=== PATIENT | male | born 1960 | race Caucasian/White ===

== ENCOUNTER 2016-09-19 17:03 | Outpatient (CLI) | payer OTHER, BC | END 2016-09-19 17:04 | disposition home or self-care (01) | DX: K42.9 Umbilical hernia without obstruction or gangrene (principal) ==

== ENCOUNTER 2016-10-05 08:29 | Day surgery (SDC) | payer OTHER, BC ==
[2016-10-05] MEDS ORDERED: ceFAZolin 2 GM/50 ML 50 ML IV ONE (08:37)
[2016-10-05] MEDS ORDERED: LACTATED RINGERS 1,000 ML IV ONE ×3 (09:13→14:08)
[2016-10-05] MEDS ORDERED: BUPIVACAINE 0.5% PF 30 ML VIAL INFIL ONE ×2 (11:52)
[2016-10-05] MEDS ORDERED: LIDOCAINE 1%-EPI 1:100000 20 ML MDV SUBQ ONE ×2 (11:52)
[2016-10-05] MEDS ORDERED: LIDOCAINE 2%-EPI 1:100000 20 ML MDV SUBQ ONE (11:53)
[2016-10-05] MEDS ORDERED: fentaNYL 250 MCG/5 ML VIAL IVP ONE (13:00)
[2016-10-05] MEDS ORDERED: ONDANSETRON 4 MG/2 ML VIAL IVP ONE (13:00)
[2016-10-05] MEDS ORDERED: KETOROLAC 30 MG/ML VIAL IVP ONE (13:00)
[2016-10-05] MEDS ORDERED: MIDAZOLAM 2 MG/2 ML VIAL IVP ONE (13:00)
[2016-10-05] MEDS ORDERED: PROPOFOL 200 MG/20 ML VIAL IVP ONE (13:00)
[2016-10-05] MEDS ORDERED: DEXAMETHASONE 4 MG/ML VIAL IVP ONE (13:00)
[2016-10-05] MEDS ORDERED: GLYCOPYRROLATE 1 MG/5 ML VIAL IVP ONE (13:00)
[2016-10-05] MEDS ORDERED: LIDOCAINE-MPF 2% 5 ML VIAL IM ONE (13:00)
[2016-10-05] MEDS ORDERED: ACETAMINOPHEN 1,000 MG/100 ML VIAL IV ONE (13:00)
[2016-10-05] MEDS ORDERED: ROCURONIUM 50 MG/5 ML VIAL IVP ONE (13:00)
[2016-10-05] MEDS ORDERED: NEOSTIGMINE 1 MG/1 ML 10 ML MDV IVP ONE (13:00)
[2016-10-05] MEDS ORDERED: SUCCINYLCHOLINE 200 MG/10 ML VIAL IVP ONE (13:00)
[2016-10-05] MEDS ORDERED: HYDROmorphone 1 MG/ML SYRINGE ONE (13:44)
[2016-10-05] MEDS ORDERED: oxyCOD/ACETAMIN 5 MG/325 MG TABLET PO ONE (14:37)
== END 2016-10-05 08:30 | disposition home or self-care (01) ==
PROC: 0WUF0JZ Supplement Abdominal Wall with Synthetic Substitute, Open Approach (ICD-10-PCS; principal; 2016-10-05 09:45)
DX: K42.9 Umbilical hernia without obstruction or gangrene (principal); G47.33 Obstructive sleep apnea (adult) (pediatric); Z82.3 Family history of stroke; Z83.49 Family history of other endocrine, nutritional and metabolic diseases; Z87.891 Personal history of nicotine dependence; E66.9 Obesity, unspecified; Z68.41 Body mass index [BMI] 40.0-44.9, adult
CPT/HCPCS: 49585; A9270; J0131; J0690; J1170; J3010; J7120

== ENCOUNTER 2016-10-17 15:39 | Outpatient (CLI) | payer OTHER, BC | END 2016-10-17 15:40 | disposition home or self-care (01) | DX: R30.0 Dysuria (principal) ==

== ENCOUNTER 2016-10-18 09:27 | Outpatient (CLI) | payer OTHER, BC | END 2016-10-18 09:28 | disposition home or self-care (01) | DX: K57.32 Diverticulitis of large intestine without perforation or abscess without bleeding (principal) ==

== ENCOUNTER 2016-12-24 10:20 | Outpatient (CLI) | payer BC, OTHER | END 2016-12-24 10:21 | disposition home or self-care (01) | LOC: SC 10:20 | PROVIDERS: ATTEND Nurse Practitioner Family | DX: G47.33 Obstructive sleep apnea (adult) (pediatric) (principal) | CPT/HCPCS: 99212; 99214 ==

== ENCOUNTER 2017-11-20 09:05 | Outpatient (CLI) | payer OTHER, BC ==
--- NOTE | 2017-11-20 10:45 | Ultrasound Report ---
LIMITED ABDOMINAL ULTRASOUND: 11/20/2017 CLINICAL INDICATION: Pain, question recurrent periumbilical hernia. TECHNIQUE: Real-time scanning was performed with novelties sales representative static images obtained. FINDINGS: Ultrasound of the periumbilical abdominal wall was performed. There was no evidence of a recurrent hernia. Unremarkable subcutaneous fat is seen. IMPRESSION: NO EVIDENCE OF A RECURRENT PERIUMBILICAL HERNIA. TD: 11/20/2017 10:19
== END 2017-11-20 09:06 | disposition home or self-care (01) ==
LOC: DI 09:05
PROVIDERS: ATTEND Family Medicine
DX: S39.011A Strain of muscle, fascia and tendon of abdomen, initial encounter (principal); R10.9 Unspecified abdominal pain; K42.9 Umbilical hernia without obstruction or gangrene
CPT/HCPCS: 76705

== ENCOUNTER 2018-01-21 09:42 | Outpatient (CLI) | payer BC, OTHER | END 2018-01-21 09:43 | disposition home or self-care (01) | LOC: SC 09:42 | PROVIDERS: ATTEND Nurse Practitioner Family | DX: G47.33 Obstructive sleep apnea (adult) (pediatric) (principal) | CPT/HCPCS: 99212; 99214 ==

== ENCOUNTER 2018-06-26 09:52 | Outpatient (CLI) | payer BC, OTHER ==
[2018-06-26 13:29] LABS: BASOPHILS % (AUTO) 0.3 %; EOSINOPHILS # (AUTO) 0.1 10^3/uL (0.0-0.7); EOSINOPHILS % (AUTO) 1.3 %; HGB - HEMOGLOBIN 15.4 g/dL (14.0-18.0); LYMPHOCYTES # (AUTO) 1.8 10^3/uL (1.5-3.5); LYMPHOCYTES % (AUTO) 29.1 %; MEAN CORPUSCULAR HEMOGLOBIN 31.4 pg (27.0-31.0); MEAN CORPUSCULAR HGB CONC 35.6 g/dL (32.0-36.0); MEAN CORPUSCULAR VOLUME 88.2 fL (80.0-94.0); MEAN PLATELET VOLUME 9.4 fL (7.4-11.4); MONOCYTES # (AUTO) 0.4 10^3/uL (0.0-1.0); MONOCYTES % (AUTO) 6.4 %; NEUTROPHILS # (AUTO) 3.9 10^3/uL (1.5-6.6); NEUTROPHILS % (AUTO) 62.9 %; PLT - PLATELET COUNT 121 10^3/uL (130-450); RED BLOOD COUNT 4.91 10^6/uL (4.70-6.10); RED CELL DISTRIBUTION WIDTH 13.5 % (12.0-15.0); WHITE BLOOD COUNT 6.3 x10^3/uL (4.8-10.8)
[2018-06-26 14:12] LABS: ALBUMIN/GLOBULIN RATIO 1.3 (1.0-2.2); BILIRUBIN,TOTAL 0.7 mg/dL (0.2-1.0); CALCIUM 8.8 mg/dL (8.5-10.3); CREATININE 0.8 mg/dL (0.6-1.2); TOTAL PROTEIN 7.1 g/dL (6.7-8.2)
== END 2018-06-26 23:59 | disposition home or self-care (01) ==
LOC: LAB.WCP 09:52
PROVIDERS: ATTEND Family Medicine
DX: R10.33 Periumbilical pain (principal)
CPT/HCPCS: 36415; 80053; 82150; 83690; 85025

== ENCOUNTER 2019-01-07 08:43 | Outpatient (CLI) | payer BC, OTHER | END 2019-01-07 08:44 | disposition home or self-care (01) | LOC: SC 08:43 | PROVIDERS: ATTEND Nurse Practitioner Family | DX: G47.33 Obstructive sleep apnea (adult) (pediatric) (principal) | CPT/HCPCS: 99212; 99214 ==

== ENCOUNTER 2019-08-06 10:37 | Outpatient (CLI) | payer OTHER, BC ==
--- NOTE | 2019-08-06 16:30 | XRAY Report ---
Reason: LEFT KNEE SPRAIN Procedure Date: 08/06/2019 Accession Number: [id number] / [id number] Procedure: WCP - Knee 3 View LT CPT Code: Final Report FULL RESULT: EXAM: LEFT KNEE RADIOGRAPHY EXAM DATE: 08/06/2019 10:37 AM. CLINICAL HISTORY: LEFT KNEE SPRAIN. COMPARISON: None. TECHNIQUE: 3 views. FINDINGS: Bones: Superior patellar enthesophyte. No fractures or bone lesions. Joints: Normal. No effusion. No subluxations. Soft Tissues: Normal. No soft tissue swelling. IMPRESSION: No fracture or dislocation. RADIA
== END 2019-08-06 10:38 | disposition home or self-care (01) ==
LOC: DI.WCP 10:37
PROVIDERS: ATTEND Family Medicine
DX: S83.92XA Sprain of unspecified site of left knee, initial encounter (principal)

== ENCOUNTER 2019-08-26 09:58 | Outpatient (CLI) | payer OTHER, BC ==
--- NOTE | 2019-08-26 12:35 | MRI Report ---
Reason: SPONTANEOUS RUPTURE OF QUADRICEPS TENDON, LT Procedure Date: 08/26/2019 Accession Number: [id number] / [id number] Procedure: MRI - Knee LT W/O CPT Code: Final Report FULL RESULT: EXAM: LEFT KNEE MRI WITHOUT CONTRAST EXAM DATE: 08/26/2019 11:10 AM. CLINICAL HISTORY: Medial left knee pain after twisting and fall injury. SPONTANEOUS RUPTURE OF QUADRICEPS TENDON, LT. COMPARISON: KNEE 3 VIEW LT 08/06/2019 10:37 AM. TECHNIQUE: Multiplanar, multisequence T1-weighted and fluid-sensitive sequences of the knee without contrast. Other: None. FINDINGS: Bones and articular cartilage: Focal articular cartilage fissure and minimal subchondral marrow edema at the posterior lateral aspect of the medial femoral condyle. Grade II chondromalacia and mild subchondral marrow edema at the medial tibial plateau. Multiple, mostly partial-thickness articular cartilage fissures at the patella. A bipartite patellar variant is present. No patellar subluxation. Medial Meniscus: Radial tear at the lateral aspect of the posterior horn. Lateral Meniscus: The lateral meniscus is intact. Cruciate Ligaments: The anterior and posterior cruciate ligaments are intact. Collateral Ligaments: The medial collateral and lateral collateral ligamentous structures are intact. Tendons: The quadriceps, patellar, semimembranosus, and popliteus tendons are unremarkable. Musculature: No edema or fatty atrophy. Other: Small joint effusion. No popliteal cyst. No loose bodies. The medial and lateral retinacula are intact. Mild amount of edema at the pes anserine bursa. IMPRESSION: 1. Tricompartmental chondromalacia. 2. Radial tear at the lateral aspect of the posterior horn medial meniscus. 3. Small joint effusion. 4. Mild amount of edema at the pes anserine bursa. RADIA
== END 2019-08-26 09:59 | disposition home or self-care (01) ==
LOC: DI 09:58
PROVIDERS: ATTEND Family Medicine
DX: M94.262 Chondromalacia, left knee (principal); S83.242A Other tear of medial meniscus, current injury, left knee, initial encounter; M25.462 Effusion, left knee; R60.0 Localized edema

== ENCOUNTER 2020-01-28 10:40 | Outpatient (CLI) | payer BC, OTHER ==
[2020-01-28 11:54] VITALS: BP 138/98
--- NOTE | 2020-01-28 11:54 | SLEEP CARE CONSULTATION ---
Information from patient questionnaire entered by Keturah Copeland. I have reviewed and concur with the information entered by Keturah Copeland. This document represents the service I personally performed and the decisions made by me, Madison Sanchez, RN, MSN, [employer]. History of Present Illness Service Date and Time: 01/28/2020 1040 Previous diagnosis: Moderate, Obstructive Sleep Apnea-Hypopnea Syndrome AHI: 18.2 Reason for follow up: annual Equipment type: CPAP Equipment obtained from: [facility] (having getting supplies despite repeated attempts / would like to transfer) Mask style: Full face Backup mask available: Yes (old mask ) Last cushion change: none since new mask 4 months ago Prior sleep studies: Yes Year and Where: 2015 [facility] Type of Sleep Study: Polysomnography HPI additional information: Current bedime 1am and wake time 6-7 am average without use of an alarm. He will not put CPAP on occasionally after using the bathroom CPAP Compliance Data - Data Reviewed with Patient Average duration of nightly device use: 5h 42m Compliance rate %: 90.6 Current pressure setting (cmH2O): 7 Humidity settin Average residual AHI: 2.7 Average large leak: 3m 41s Subjective Missed days of use due to: reports: travel (forgot CPAP despite at door ) Patient concerns: reports: dry mouth, nose, throat (dry throat ). denies: aerophagia, mask discomfort, air blowing in eyes, mask leak noise, condensation in mask/hose, nasal congestion, epistaxis, other Observed to snore while using device: No Current pressure setting perceived as: comfortable On therapy, patient: reports: sleeping better, awakening more refreshed, being more awake and alert during the day, more rested overall. denies: drowsiness while driving Initial [place] Sleepiness Scale score: 14 Current [place] Sleepiness Scale score: 1 Allergies and Home Medications Known drug allergies: No Home medication list reviewed: No (added Linzess for constipation ) Review of Systems Review of systems same as previous: Yes Physical Exam Blood Pressure: 138/98 (PCP normal 3 days ago ? ) Cuff size: long Heart Rate: 60 O2 Saturation: 98 Height: 5 ft 10 in Weight: 288 lb 12.8 oz Body Mass Index: 41.4 BMI Classification: Morbidly Obese Impression and Plan 1. Obstructive Sleep Apnea-Hypopnea Syndrome, moderate , with good treatment compliance and good apnea control. On CPAP therapy, the patient has better sleep quality and is more rested overall. For patient supply concerns. Patient was notified that another DME can be used. I will have my enrollment management coordinator inform of DME options. A DWO prescription will then be made. Patient advised to contact this office if further supply problems. Insufficient sleep due to work schedule, 1.[address], and household obligations. He is encouraged to obtain more sleep due to health risks associated with less than 5- 6 horus of sleep. Most people require 7-8 hours of sleep for optimal mental and physical function. His compliance sleep patterns were reviewed and I showed him how his sleep time can be as low as 4 hours and as much as 8 hours. He is encouraged to use CPAP also with all sleep and put back on after using the bathroom as there is increased risk of apnea in REM sleep in out later sleep. Mask leaks can be reduced by washing mask daily and changing mask cushions more frequently to improve mask seal and comfort. This will be easier when he can get supplies on time. Increase setting on humidifier if continued dryness. He asked about cleaning devices for CPAP. FDA warning given about association with health risks. He can check online for warning. He is advised instead to do usual cleaning as advised by bench mover and reviewed. In addition, he was advised to dump water daily to allow to dry out instead of keeping in several days till used with rationale discussed. Currently patients BMI is 41.4 obesity class . Obesity increases the risk of apnea, CPAP pressure requirements and overall health risks especially cardiovascular and diabetes. Thus patient is advised to lose weight. A diet consultation can be helpful in achieving optimal weight loss goals. The BMI chart was reviewed. The patient would like to start by losing 10 pounds. He has lost 40 pounds in the past but regained after stopped nutrisystem diet plan. Patient encouraged to discuss their weight loss goals with their PCP and consider a referral to a steam drier tender. The patient's CPAP pressure range should accommodate some weight loss.was changed to autoCPAP to accommodate for future weight loss. Symptoms to report for additional pressure adjustment discussed. Patient's apnea severity and rationale for treatment to reduce apnea, improve sleep quality and reduce cardiovascular and cerebrovascular events was reviewed. I 2. Elevated blood pressure. today it was 130 / 98. He states he was stressed about returning to work today after 5 days off. His blood pressure was normal 3 days ago in PCP office but does not know reading. He is advised of health risks associated with uncontrolled BP. He has a blood pressure monitor at home, his spouse uses. He is to retake when home and rested and contact PCP if remains elevated for guidelines with rationale explained. * Transfer to new DME * Continue auto CPAP pressure at 7 cmH2O * Obtain more sleep. * Implement cleaning of equipment more frequently. * Notify me if snoring with mask or feeling that the pressure is too much or too little * Attempt to lose weight * Consider diet consultation. * Follow up with PCP if blood pressure remains elevated * Call this office if any problems using CPAP * Return for follow up in 1year , or sooner if concerns arise Visit Type: In Office Provider Statement: I spent 100% of the Face to Face Visit with the patient with greater than 50% spent counseling the patient and coordination of care.
== END 2020-01-28 10:41 | disposition home or self-care (01) ==
LOC: SC 10:40
PROVIDERS: ATTEND Nurse Practitioner Family
DX: G47.33 Obstructive sleep apnea (adult) (pediatric) (principal); E66.01 Morbid (severe) obesity due to excess calories; Z68.41 Body mass index [BMI] 40.0-44.9, adult; R03.0 Elevated blood-pressure reading, without diagnosis of hypertension
CPT/HCPCS: 99212; 99214

== ENCOUNTER 2021-01-25 10:24 | Outpatient (CLI) | payer BC, OTHER ==
--- NOTE | 2021-01-25 11:29 | SLEEP CARE CONSULTATION ---
Information from patient questionnaire entered by Ching Gilmore. I have reviewed and concur with the information entered by Ching Gilmore. This document represents the service I personally performed and the decisions made by , Eleni Stoddard ARNP. History of Present Illness Service Date and Time: 01/25/2021 1024 Previous diagnosis: Moderate, Obstructive Sleep Apnea-Hypopnea Syndrome AHI: 18.2 (in 2015) Reason for follow up: annual (last seen 01/2020) Equipment type: CPAP Equipment obtained from: [facility] (getting supplies as needed) Mask style: Full face Backup mask available: Yes (old mask) Last cushion change: 1 month Prior sleep studies: Yes Year and Where: 2016 - [facility] HPI additional information: SHEILA HOWARD was diagnosed to have moderate, AHI 18.2, obstructive sleep apnea-hypopnea syndrome and returned today for CPAP therapy annual follow-up. CPAP Compliance Data - Data Reviewed with Patient Average duration of nightly device use: 6 hr 7 min Compliance rate %: 95 (180 days) Current pressure setting (cmH2O): 7 Humidity settin Heated hose settin Average residual AHI: 2.1 Average large leak: 1 min 39 sec Subjective Patient concerns: denies: aerophagia, mask discomfort, air blowing in eyes, mask leak noise, condensation in mask/hose, nasal congestion, dry mouth, nose, throat, epistaxis, other Observed to snore while using device: No Current pressure setting perceived as: comfortable On therapy, patient: reports: sleeping better, awakening more refreshed, being more awake and alert during the day, more rested overall. denies: drowsiness while driving Initial [place] Sleepiness Scale score: 13 (in 2016) Current [place] Sleepiness Scale score: 2 Allergies and Home Medications Home medication list reviewed: Yes (no changes) Review of Systems Review of systems same as previous: Yes (no changes) Physical Exam Heart Rate: 66 O2 Saturation: 97 Height: 5 ft 10 in Weight: 292 lb Body Mass Index: 41.8 BMI Classification: Morbidly Obese Impression and Plan 1. Obstructive Sleep Apnea-Hypopnea Syndrome, moderate, with good treatment compliance and good apnea control. On CPAP therapy, the patient has better sleep quality and is more rested overall. Patient Dreamstation is on the recall and he has registered his device. I advised him to use an inline filter to reduce any particles from machine. His machine was last updated in 2016, he is eligible for a new device. The patients CPAP is over 5 years old and of reasonable use. Thus, the CPAP will be updated. A DWO prescription will be made. Compliance guidelines for new device and follow up discussed. Patient voiced understanding. Patient's apnea severity and rationale for treatment to reduce apnea, improve sleep quality and reduce cardiovascular and cerebrovascular events was reviewed. Patient encouraged to try to lose weight. He states his schedule prevents him at this time. * Continue auto CPAP pressure at 7 cmH2O * Update machine and supplies * Notify me if snoring with mask or feeling that the pressure is too much or too little * Attempt to lose weight * Call this office if any problems using CPAP * Return for follow up one month after getting new device, or sooner if concerns arise Counseling Topics: Spare mask, Weight loss health impact Visit Type: In Office Time Spent with Patient (minutes): 20 Provider Statement: I spent 100% of the Face to Face Visit with the patient with greater than 50% spent counseling the patient and coordination of care.
== END 2021-01-25 10:25 | disposition home or self-care (01) ==
LOC: SC 10:24
PROVIDERS: ATTEND Nurse Practitioner Family
DX: G47.33 Obstructive sleep apnea (adult) (pediatric) (principal); E66.01 Morbid (severe) obesity due to excess calories; Z68.41 Body mass index [BMI] 40.0-44.9, adult
CPT/HCPCS: 99212; 99213

== ENCOUNTER 2021-05-21 20:50 | Emergency (ER) | payer BC, OTHER ==
--- NOTE | 2021-05-21 21:12 | ED Physician Documentation ---
History of Present Illness - Stated complaint Stated Complaint: FELL DOWN STAIRS - Chief complaint Chief Complaint: Trauma Ch/Bk - History obtained from History obtained from: Patient - Additonal information Additional information: He was walking down his steps outdoors around 1:30 PM today and slipped and fell backwards hitting his left side against the brick steps with severe pain in that area although declines pain medication having taken Tylenol and ibuprofen prior to arrival. No other injuries. Review of Systems Constitutional: denies: Fever, Chills Cardiac: reports: Reviewed and negative Respiratory: reports: Reviewed and negative PD PAST MEDICAL HISTORY - Past Medical History Cardiovascular: Murmur Respiratory: Sleep apnea, CPAP use Endocrine/Autoimmune: None GI: Chronic constipation : None HEENT: None Psych: None Musculoskeletal: Gout, Other Derm: None - Past Surgical History Past Surgical History: No General: Colonoscopy Ortho: Other - Present Medications Home Medications: Ambulatory Orders Medication Instructions Recorded Confirmed Ibuprofen [Motrin Ib] 800 mg PO Q8HR PRN 02/08/15 05/21/21 allopurinoL [Allopurinol] 100 mg PO DAILY 02/08/15 05/21/21 Multivitamin [Multiple Vitamins] 1 tab PO DAILY 10/05/16 05/21/21 HYDROcod/ACETAM 5/325 [[place] 5/325] 1 - 2 tab PO Q6H PRN #15 tablet 05/21/21 Meloxicam [Mobic] 7.5 mg PO BID PRN 05/21/21 05/21/21 - Allergies Allergies/Adverse Reactions: Allergies Allergy/AdvReac Type Severity Reaction Status Date / Time No Known Drug Allergies Allergy Verified 02/08/15 02:10 - Social History Does the pt smoke?: No Smoking Status: Never smoker Does the pt drink ETOH?: Yes Does the pt have substance abuse?: No - Immunizations Immunizations are current?: Yes - POLST Patient has POLST: No PD ED PE NORMAL - Vitals Vital signs reviewed: Yes - General General: Alert and oriented X 3, No acute distress - HEENT HEENT: PERRL, EOMI - Neck Neck: Supple, no meningeal sign, No bony TTP - Cardiac Cardiac: RRR, No murmur - Respiratory Respiratory: No respiratory distress, Clear bilaterally - Abdomen Abdomen: Soft, Non tender - Back Back: Other (Exquisitely tender in the left lower lateral posterior ribs. Also some flank tenderness on the left. No midline spinal tenderness. No bruising or ecchymosis.) - Derm Derm: Normal color, Warm and dry - Neuro Neuro: Alert and oriented X 3, Normal speech Results - Vitals Vitals: Vital Signs - 24 hr 05/21/21 05/21/21 20:52 23:20 Temperature 36.5 C 36.9 C Heart Rate 65 59 L Respiratory 18 16 Rate Blood Pressure 138/90 H 128/91 H O2 Saturation 96 98 Oxygen O2 Source Room air - Rads (name of study) CT Chest/A/P Radiology: EMP read contemporaneously PD MEDICAL DECISION MAKING - ED course ED course: 60 yo male p fall with back injury. Ct showing rib frx x 1 but also retroperitoneal LAD and d/w patient and need for f/u for same and pt verablizes understanding of need for close f/u for incidental but important finding. Departure - Departure Disposition: 01 Home, Self Care Clinical Impression: Contusion of chest wall, Back strain, LAD (lymphadenopathy), retroperitoneal Fracture of rib Qualifiers: Encounter type: initial encounter Rib fracture type: single rib Fracture type: closed Laterality: left Qualified Code(s): S22.32XA - Fracture of one rib, left side, initial encounter for closed fracture Condition: Good Record reviewed to determine appropriate education?: Yes Instructions: ED Fx Rib Prescriptions: HYDROcod/ACETAM 5/325 [[place] 5/325] 1 - 2 tab PO Q6H PRN #15 tablet PRN Reason: Pain Comments: Prescrtiption sent electronically to [facility] in [place]. Call your doctor to arrange a follow-up appointment, make the next available appointment. In the interim, return anytime if worse or if new symptoms develop. You have a single rib fracture identified by the radiologist. He also noted some swollen lymph nodes in your abdomen. This is unrelated to the fall, but will require followup and further workup with your primary physician. I am prescribing a short course of narcotic pain medication for you. These are potentially dangerous and addictive medications that should be used carefully. These medications may constipate you. Take an wfnd-luu-krdqkwi stool softener (docusate) twice daily with plenty of water while taking these medications. If you go 24 hours without a bowel movement, take ghue-wvj-ptrhazk miralax, per package instructions. Do not drink or drive while taking these medications. If you received narcotic or sedating medications while in the emergency department, do not drive for 24 hours. Store this medication in a safe, secure place and out of reach of children. It is a violation of federal law to give or sell this medication to another person or to use in a manner other than prescribed. The ED will not refill narcotic prescriptions, including prescriptions lost or stolen. To dispose of unwanted medications: 1. [facility] at [address] in [place] has a medication drop box. They accept prescription medications (in pill form) Saturday through Saturday 9:00 a.m. to 5:00 p.m. 2. [facility] accepts prescription medications (in pill form only) for disposal year round. Call for more information. 3. Contact the [facility] for the next [facility] sponsored prescription drug collection event. , [phone], or [phone]; Note that many narcotic pain relievers also contain Tylenol/acetaminophen. Please ensure that your total dose of acetaminophen from all sources does not exceed 3 g (3000 mg) per day. Forms: Activity restrictions Discharge Date/Time: 05/21/21 23:21
[2021-05-21] MEDS ORDERED: HYDROcod/ACET 5/325 Prepack 4 PO STA (22:22)
--- NOTE | 2021-05-21 22:30 | CT Report ---
PROCEDURE: CHEST WO INDICATIONS: back injury TECHNIQUE: Noncontrast 1mm axial images were acquired from the pulmonary apices to the posterior costophrenic an gles. Axial 5 mm soft tissue kernel reconstructions were performed as well as 8 mm axial MIP and cor onal and sagittal 5 mm reformations. For radiation dose reduction, the following was used: automate d exposure control, adjustment of mA and/or kV according to patient size. COMPARISON: None. FINDINGS: Image quality: Excellent. Lungs and pleura: No acute air space opacities. No suspicious pulmonary nodules. No pleural effusion s or pneumothorax. Central and peripheral airways are patent and normal in caliber. Mediastinum: Heart size is normal. Atherosclerotic calcifications of the coronary arteries and thor acic aorta are noted. No pericardial effusion. No mediastinal adenopathy by size criteria. Thoracic aorta and central pulmonary arteries are normal in size. Esophagus is normal in caliber. No hiatal hernia. Bones and chest wall: No suspicious bony lesions. No acute vertebral body compression fractures. N o axillary or supraclavicular adenopathy by size criteria. The thyroid is normal in size and there a re no incidental findings. Abdomen: Visualized upper abdominal solid organs and bowel loops appear normal in the absence of con trast. IMPRESSION: Chest without acute cardiopulmonary abnormalities. Acute, nondisplaced fracture of the posterior left 11th rib. No acute compression fractures of the im aged spine. Atherosclerosis. CLINICAL RECOMMENDATION STATEMENTS: In patients <35 years with an ITN detected on CT, MRI, or extrathyroidal ultrasound, the Committee re commends further evaluation with dedicated thyroid ultrasound if the nodule is "e1 cm and has no susp icious imaging features, and if the patient has normal life expectancy. In patients "e35 years with an ITN detected on CT, MRI, or extrathyroidal ultrasound, the Committee r ecommends further evaluation with dedicated thyroid ultrasound if the nodule is "e1.5 cm and has no s uspicious imaging features, and if the patient has normal life expectancy. (ACR, 2014) Reviewed by: Johny Avendano MD on 05/21/2021 10:29 PM PST Approved by: Johny Avendano MD on 05/21/2021 10:29 PM PST Station ID: [id number]
--- NOTE | 2021-05-21 22:41 | CT Report ---
PROCEDURE: Abdomen/Pelvis WO INDICATIONS: back injury TECHNIQUE: Noncontrast 5 mm thick sections acquired from the diaphragms to the symphysis. 5 mm coronal and sagi ttal reformats were then performed. For radiation dose reduction, the following was used: automated exposure control, adjustment of mA and/or kV according to patient size. COMPARISON: 10/18/2016. FINDINGS: Image quality: Excellent. ABDOMEN: Lung bases: Mild bibasilar atelectasis. Heart size is normal. Atherosclerosis of the coronary arteri es. Solid organs: Liver and spleen are normal in size. No evidence for traumatic injuries. Gallbladder i s unremarkable. Pancreas is normal in contours. No adrenal nodules. Kidneys are normal in size, wi thout hydronephrosis or significant perinephric stranding. Redemonstration of nonobstructing punctate left nephrolith measuring approximately 3 mm in sizes. Peritoneum and bowel: Unenhanced bowel loops demonstrate normal wall thickness and caliber. No free fluid or air. Scattered colonic diverticulosis without acute diverticulitis. Nodes and vessels: Interval development of numerous abnormally enlarged retroperitoneal lymph nodes most pronounced near the periaortic region near the level of the renal arteries. Largest measures danish roximately 2.9 cm in short axis dimension (image 51/series 4). No mesenteric adenopathy by size crite gareth. Aorta and inferior vena cava are normal in caliber. Miscellaneous: No ventral hernias. PELVIS: Genitourinary: Bladder wall thickness is normal. No urinary bladder stones. Miscellaneous: No inguinal hernias or adenopathy. Bones: No suspicious bony lesions. Nondisplaced acute posterior left 11th rib fracture. No acute jasper tebral body compression fractures. IMPRESSION: 1. Acute, nondisplaced left posterior 11th rib fracture. 2. No acute compression fractures of the imaged spine. 3. No acute traumatic injuries to the visualized hollow or solid organs. 4. Interval development of numerous enlarged retroperitoneal lymph nodes most pronounced near the per iaortic region at the level of the renal arteries. Otherwise, no suspicious mass lesions seen. Findin gs may represent an infectious or inflammatory process although lymphoma may have a similar appearanc e. Recommend outpatient follow-up for further evaluation. 5. Colonic diverticulosis without acute diverticulitis. 6. Redemonstration of nonobstructing 3 mm left nephrolith. Reviewed by: Johny Avendano MD on 05/21/2021 10:40 PM PST Approved by: Johny Avendano MD on 05/21/2021 10:40 PM PST Station ID: [id number]
[2021-05-21 23:22] VITALS: BP 128/91
== END 2021-05-21 23:21 | disposition home or self-care (01) ==
LOC: ED 20:50
DX: S22.32XA Fracture of one rib, left side, initial encounter for closed fracture (principal); S23.3XXA Sprain of ligaments of thoracic spine, initial encounter; W10.8XXA Fall (on) (from) other stairs and steps, initial encounter; Y92.008 Other place in unspecified non-institutional (private) residence as the place of occurrence of the external cause; R59.0 Localized enlarged lymph nodes; G47.30 Sleep apnea, unspecified; M10.9 Gout, unspecified; Z79.899 Other long term (current) drug therapy
CPT/HCPCS: 99283; 99284

== ENCOUNTER 2021-05-31 10:49 | Outpatient (CLI) | payer BC, OTHER ==
[2021-05-31 18:20] LABS: BASOPHILS % (AUTO) 0.5 %; EOSINOPHILS # (AUTO) 0.1 10^3/uL (0.0-0.7); EOSINOPHILS % (AUTO) 1.9 %; HCT - HEMATOCRIT 44.3 % (42.0-52.0); HGB - HEMOGLOBIN 15.1 g/dL (14.0-18.0); LYMPHOCYTES # (AUTO) 1.5 10^3/uL (1.5-3.5); LYMPHOCYTES % (AUTO) 22.8 %; MEAN CORPUSCULAR HEMOGLOBIN 30.5 pg (27.0-31.0); MEAN CORPUSCULAR HGB CONC 34.1 g/dL (32.0-36.0); MEAN CORPUSCULAR VOLUME 89.5 fL (80.0-94.0); MEAN PLATELET VOLUME 11.2 fL (7.4-11.4); MONOCYTES # (AUTO) 0.5 10^3/uL (0.0-1.0); MONOCYTES % (AUTO) 7.3 %; NEUTROPHILS # (AUTO) 4.4 10^3/uL (1.5-6.6); PLT - PLATELET COUNT 148 10^3/uL (130-450); RED BLOOD COUNT 4.95 10^6/uL (4.70-6.10); RED CELL DISTRIBUTION WIDTH 13.4 % (12.0-15.0); WHITE BLOOD COUNT 6.5 x10^3/uL (4.8-10.8)
[2021-05-31 18:30] LABS: ALBUMIN 3.8 g/dL (3.2-5.5); ALBUMIN/GLOBULIN RATIO 1.1 (1.0-2.2); ALKALINE PHOSPHATASE 61 IU/L (42-121); ALT ALANINE AMINOTRANSFERASE 24 IU/L (10-60); AST ASPARTATE AMINOTRANSFERASE 23 IU/L (10-42); BILIRUBIN,TOTAL 0.6 mg/dL (0.2-1.0); BUN - BLOOD UREA NITROGEN 18 mg/dL (6-20); CALCIUM 9.2 mg/dL (8.5-10.3); CARBON DIOXIDE - CO2 27 mmol/L (21-32); CHLORIDE 101 mmol/L (101-111); CREATININE 0.8 mg/dL (0.6-1.2); GFR - MDRD 99 (>89); GLUCOSE 108 mg/dL (70-100); POTASSIUM 4.2 mmol/L (3.5-5.0); SODIUM 137 mmol/L (135-145); TOTAL PROTEIN 7.3 g/dL (6.7-8.2)
[2021-05-31 19:11] LABS: CRP - C-REACTIVE PROTEIN < 1.0 mg/dL (0-1.0)
== END 2021-05-31 23:59 | disposition home or self-care (01) ==
LOC: LAB.WCP 10:49
PROVIDERS: ATTEND Family Medicine
DX: R59.0 Localized enlarged lymph nodes (principal)
CPT/HCPCS: 36415; 80053; 85025; 85651; 86140

== ENCOUNTER 2022-01-30 10:14 | Outpatient (CLI) | payer BC, OTHER ==
[2022-01-30 10:52] VITALS: BP 122/78
--- NOTE | 2022-01-30 10:52 | SLEEP CARE CONSULTATION ---
Information from patient questionnaire entered by Mir Castillo MA. I have reviewed and concur with the information entered by Mir Castillo MA. This document represents the service I personally performed and the decisions made by , Eleni Stoddard ARNP. History of Present Illness Service Date and Time: 01/30/2022 1014 Previous diagnosis: Moderate, Obstructive Sleep Apnea-Hypopnea Syndrome AHI: 18.2 (in 2016) Reason for follow up: annual (LAST SEEN 01/2021, NAVIN, KAUR 10/21/2015, NEW RX? ) Equipment type: CPAP Equipment obtained from: Other ([facility]; getting supplies) Mask style: Full face Mask brand: Resmed (Airfit F20) Backup mask available: Yes (old mask) Last cushion change: 2 weeks Prior sleep studies: Yes Year and Where: 2015 - [facility] Sleep HPI additional information: SHEILA HOWARD was diagnosed to have moderate, AHI 18.2, obstructive sleep apnea-hypopnea syndrome and returned today for CPAP therapy annual follow-up. Sleep Study - Results Prior sleep studies: Yes Year and Where: 2015 - [facility] Sleep CPAP Compliance Data - Data Reviewed with Patient Average duration of nightly device use: 6 hours 16 minutes Compliance rate %: 98 (177/180 days used) Current pressure setting (cmH2O): 7.0 Average residual AHI: 0.4 Central apnea: 0.0 Obstructive apnea: 0.0 Hypopnea: 0.4 Average large leak: 14.7 L/min Compliance data discussion: Patient had a Dreamstation CPAP that was replaced about 03/2021 by a ResMed Airsense 11. He states he has been using it every day. Dreamstation - last 90 days 98.9% compliant, ending 03/2021. Average AHI 1.9 and average large leak of 1 minute 15 seconds. His pressure is set at 7.0 cmH2O. Subjective Patient concerns: reports: mask leak noise (occasional, probably due to boyle.). denies: aerophagia, mask discomfort, air blowing in eyes, condensation in mask/hose, nasal congestion, dry mouth, nose, throat, epistaxis, other Observed to snore while using device: No Current pressure setting perceived as: comfortable On therapy, patient: reports: sleeping better, awakening more refreshed, being more awake and alert during the day, more rested overall. denies: drowsiness while driving Initial [place] Sleepiness Scale score: 13 (in 2016) Current [place] Sleepiness Scale score: 4 (01/30/2022) Allergies and Home Medications Home medication list reviewed: Yes (chemotherapy for lipoma dx) Allergy and home medication list: Allergies No Known Drug Allergies Allergy (Verified 12/29/21 11:54) Review of Systems Review of systems same as previous: Yes (CANCER - Lipoma) Physical Exam Vital signs obtained and entered by: Lety CASTILLO CMA HEENA Blood Pressure: 122/78 (RESP 16, PULSE 68, RIGHT) Cuff size: wrist Heart Rate: 70 O2 Saturation: 98 (CLOTH) Height: 5 ft 10 in Weight: 282 lb (CLOTHES) Weight change since last visit: 10 lb loss Body Mass Index: 40.4 BMI Classification: Morbidly Obese Impression and Plan 1. Obstructive Sleep Apnea-Hypopnea Syndrome, moderate, with good treatment compliance and excellent apnea control. On CPAP therapy, the patient has better sleep quality and is more rested overall. Patient had a Dreamstation that was updated in 03/2021 with an ResMed Airsense 11. We were able to get his compliance information from his DME. 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 He is on chemotherapy. Patient denies problems with oral dryness, nasal congestion, epistaxis, skin irritation or aerophagia. Patient's apnea severity and rationale for treatment to reduce apnea, improve sleep quality and reduce cardiovascular and cerebrovascular events was reviewed. 2. Obesity, unspecified. Patient has lost about 10 lbs. Currently patients BMI is 40.4. Obesity increases the risk of apnea, CPAP pressure requirements and overall health risks especially cardiovascular and diabetes. Thus patient is advised to lose weight. Weight loss can be done with reducing portion size, reducing refined foods and balancing content with vegetables, fruit and whole grain foods. In addition, patient encouraged to get regular exercise. The patient's CPAP pressure range should accommodate some weight loss. Symptoms to report for additional pressure adjustment discussed. * Continue CPAP pressure at 7 cmH2O * We will get compliance information and update his chart note * Notify me if snoring with mask or feeling that the pressure is too much or too little * Continue to try to lose weight * Call this office if any problems using CPAP * Return for follow up in 1 year, or sooner if concerns arise Counseling Topics: Spare mask, Weight loss health impact Visit Type: In Office Time Spent with Patient (minutes): 22 Provider Statement: I spent 100% of the Face to Face Visit with the patient with greater than 50% spent counseling the patient and coordination of care.
== END 2022-01-30 10:15 | disposition home or self-care (01) ==
LOC: SC 10:14
PROVIDERS: ATTEND Nurse Practitioner Family
DX: G47.33 Obstructive sleep apnea (adult) (pediatric) (principal); E66.01 Morbid (severe) obesity due to excess calories; Z68.41 Body mass index [BMI] 40.0-44.9, adult
CPT/HCPCS: 99212; 99213

== ENCOUNTER 2022-05-15 08:00 | Outpatient (CLI) | payer BC, OTHER ==
--- NOTE | 2022-05-15 13:40 | XRAY Report ---
PROCEDURE: Pelvis 1 View INDICATIONS: INGUINAL PX TECHNIQUE: 1 view(s) of the pelvis acquired. COMPARISON: None. FINDINGS: Bones: No fractures or dislocations. No suspicious bony lesions. Degenerative changes are minimal. Soft tissues: Visualized bowel gas pattern is normal. No suspicious soft tissue calcifications. IMPRESSION: No acute abnormality of the pelvis. Reviewed by: Nolan Merida on 05/15/2022 1:38 PM [facility] Approved by: Nolan Merida on 05/15/2022 1:38 PM [facility] Station ID: [id number]
== END 2022-05-15 23:59 | disposition home or self-care (01) ==
LOC: DI.N 08:00
PROVIDERS: ATTEND Nurse Practitioner
DX: R10.30 Lower abdominal pain, unspecified (principal)

== ENCOUNTER 2022-05-30 08:00 | Outpatient (CLI) | payer BC, OTHER | END 2022-05-30 23:59 | disposition home or self-care (01) | LOC: LAB.N 08:00 | PROVIDERS: ATTEND Physician Assistant | DX: R30.0 Dysuria (principal) | CPT/HCPCS: 87086 ==

== ENCOUNTER 2022-06-01 07:59 | Outpatient (CLI) | payer BC, OTHER ==
[2022-06-01] MEDS ORDERED: iohexoL-300 100 ML VIAL ONE (08:10)
[2022-06-01] MEDS ORDERED: DIATRIZOATE MEGLU/DIATRIZO SOD 30 ML BOTTLE PO ONE (08:10)
[2022-06-01] MEDS: iohexoL-300 100 ML VIAL IVP ONE (09:50)
[2022-06-01] MEDS: DIATRIZOATE MEGLU/DIATRIZO SOD 30 ML BOTTLE PO ONE (09:50)
--- NOTE | 2022-06-01 10:39 | CT Report ---
PROCEDURE: ABDOMEN/PELVIS W INDICATIONS: INGUINAL PAIN CONTRAST: 100ml Omnipaque 300 TECHNIQUE: After the administration of oral and intravenous contrast, 5 mm thick sections acquired from the diap hragms to the symphysis. 5 mm thick coronal and sagittal reformats were acquired. For radiation dos e reduction, the following was used: automated exposure control, adjustment of mA and/or kV accordin g to patient size. COMPARISON: CT abdomen pelvis 03/09/2022. FINDINGS: Image quality: Excellent. Images are denoted as (series #/image #). Visualized lung bases: No pleural effusion. Liver and biliary tree: No suspect focal hepatic lesion. No biliary ductal dilation. Gallbladder: No radiopaque cholelithiasis. Spleen: Unremarkable. Pancreas: Unremarkable. Adrenal glands: Unremarkable. Kidneys and ureters: No hydronephrosis. Small nonobstructing stone at the left mid kidney present as before. Gastrointestinal tract: No bowel obstruction. Moderate-severe predominantly sigmoid colonic diverticu losis without definite evidence of acute diverticulitis. No evidence of acute appendicitis. Peritoneal cavity: Trace amount of nonspecific pelvic free fluid. No free air. Bladder: Unremarkable. Pelvic organs: Unremarkable CT appearance. Vasculature: No abdominal aortic aneurysm. Lymph nodes: Previously indexed periaortic lymph node at the level of the midinferior kidneys measure s 7 mm (3/49) previously 10 mm remeasured similarly. No definite new or worsening lymphadenopathy. Abdominal wall: No definite inguinal hernia identified. Musculoskeletal: Degenerative change of the spine. IMPRESSION: 1. Trace amount of nonspecific pelvic free fluid present, unclear etiology or clinical significance. 2. Small nonobstructing left renal stone present as before. 3. No definite new or worsening lymphadenopathy in the abdomen or pelvis. Reviewed by: Duarte Thomas MD on 06/01/2022 10:38 AM [facility] Approved by: Duarte Thomas MD on 06/01/2022 10:38 AM PST Station ID: [id number]
== END 2022-06-01 08:00 | disposition home or self-care (01) ==
LOC: DI 07:59
PROVIDERS: ATTEND Nurse Practitioner
DX: N20.0 Calculus of kidney (principal); R10.2 Pelvic and perineal pain
CPT/HCPCS: 74177; Q9963; Q9967

== ENCOUNTER 2022-10-22 09:40 | Outpatient (CLI) | payer BC, OTHER ==
[2022-10-22 09:55] LABS: BASOPHILS % (AUTO) 0.2 %; EOSINOPHILS # (AUTO) 0.1 10^3/uL (0.0-0.7); EOSINOPHILS % (AUTO) 1.1 %; HCT - HEMATOCRIT 42.4 % (42.0-52.0); HGB - HEMOGLOBIN 14.7 g/dL (14.0-18.0); LYMPHOCYTES # (AUTO) 1.2 10^3/uL (1.5-3.5); LYMPHOCYTES % (AUTO) 21.7 %; MEAN CORPUSCULAR HEMOGLOBIN 31.2 pg (27.0-31.0); MEAN CORPUSCULAR HGB CONC 34.7 g/dL (32.0-36.0); MEAN PLATELET VOLUME 10.1 fL (7.4-11.4); MONOCYTES # (AUTO) 0.4 10^3/uL (0.0-1.0); MONOCYTES % (AUTO) 6.8 %; NEUTROPHILS # (AUTO) 3.9 10^3/uL (1.5-6.6); PLT - PLATELET COUNT 133 10^3/uL (130-450); RED BLOOD COUNT 4.71 10^6/uL (4.70-6.10); RED CELL DISTRIBUTION WIDTH 13.6 % (12.0-15.0); WHITE BLOOD COUNT 5.6 x10^3/uL (4.8-10.8)
[2022-10-22 10:01] LABS: CREATININE 0.8 mg/dL (0.6-1.2); POTASSIUM 4.1 mmol/L (3.5-5.0)
== END 2022-10-22 09:41 | disposition home or self-care (01) ==
LOC: LAB 09:40
PROVIDERS: ATTEND Internal Medicine Cardiovascular Disease
DX: Q24.4 Congenital subaortic stenosis (principal)
CPT/HCPCS: 36415; 80048; 85025

== ENCOUNTER 2023-02-05 10:58 | Outpatient (CLI) | payer BC, OTHER ==
--- NOTE | 2023-02-05 11:41 | Sleep Patient Instructions ---
Sleep Center Visit Summary - Patient Visit Information Reason for Visit: Annual visit for CPAP therapy - Patient Instructions Additional Instructions: You will continue with CPAP therapy with pressure set at 7 cmH2O. A supply prescription will be updated with your DME. We encourage you to continue to try to lose weight. Please follow up with the sleep care office in 1 year. - Clinic Information Contact: [facility] [address] [place] [address] [email or web address] T: [phone]
--- NOTE | 2023-02-05 11:46 | SLEEP CARE CONSULTATION ---
Information from patient questionnaire entered by Marissa Wagner. I have reviewed and concur with the information entered by Marissa Wagner. This document represents the service I personally performed and the decisions made by me, Eleni Stoddard ARNP. History of Present Illness Service Date and Time: 02/05/2023 1058 Previous diagnosis: Moderate, Obstructive Sleep Apnea-Hypopnea Syndrome AHI: 18.2 (in 2015) Reason for follow up: annual (LAST SEEN 01/2022) Equipment type: CPAP (RESMED 11, s/u 03/2021) Equipment obtained from: Other ([facility]; getting supplies) Mask style: Full face Backup mask available: Yes (old mask) Last cushion change: 1 month Prior sleep studies: Yes Year and Where: 2015 - [facility] HPI additional information: SHEILA HOWARD was diagnosed to have moderate, AHI 18.2, obstructive sleep apnea-hypopnea syndrome and returned today for CPAP therapy annual follow-up. Sleep Study - Results Prior sleep studies: Yes Year and Where: 2015 - [facility] Compliance Data - Data Reviewed with Patient Average duration of nightly device use: 6 hours 5 mins Compliance rate %: 94 (08/04/22-01/30/23; 177/180 days used) Current pressure setting (cmH2O): 7 Average residual AHI: 1.0 Central apnea: 0 Obstructive apnea: 0 Hypopnea: 0.9 Average large leak: 8.8 L/min Subjective Missed days of use due to: reports: other (fell asleep without it) Patient concerns: reports: mask leak noise (occasionally). denies: aerophagia, mask discomfort, air blowing in eyes, condensation in mask/hose, nasal congestion, dry mouth, nose, throat, epistaxis Observed to snore while using device: No Current pressure setting perceived as: comfortable On therapy, patient: reports: sleeping better, awakening more refreshed, being more awake and alert during the day, more rested overall. denies: drowsiness while driving Initial [place] Sleepiness Scale score: 13 (in 2016) Current [place] Sleepiness Scale score: 9 Allergies and Home Medications Known drug allergies: No Drug allergies reviewed: Yes Home medication list reviewed: Yes (Atorvastatin, Aspirin, Metoprolol) Allergy and home medication list: Allergies No Known Drug Allergies Allergy (Verified 02/04/23 09:03) Review of Systems Review of systems same as previous: No (Heart surgery surgery Feb 18, 2023) Physical Exam Vital signs obtained and entered by: Eleni Paris NP Blood Pressure: 115/70 (left arm) Cuff size: Large Heart Rate: 61 O2 Saturation: 97 Height: 5 ft 10 in Weight: 285 lb 9.6 oz Body Mass Index: 40.9 BMI Classification: Morbidly Obese Impression and Plan 1. Obstructive Sleep Apnea-Hypopnea Syndrome, moderate, with good treatment compliance and good apnea control. On CPAP therapy, the patient has better sleep quality and is more rested overall. He states he got a replacement device from [facility] but is not using it. He has not returned his old [facility]ia CPAP on advice of his rabbit breeder. He was diagnosed with cancer last year. He has been through chemo. He has not heard from the rabbit breeder or [facility] on status. He continues to use his ResMed Airsense 11 with good results. I told him if he wants to change CPAP machines, he just needs to change this with his DME supplier. Patient has significant improvement of their sleep apnea and is satisfied with current CPAP therapy. Patient denies problems with oral dryness, nasal congestion, epistaxis, skin irritation or aerophagia. Patient's apnea severity and rationale for treatment to reduce apnea, improve sleep quality and reduce cardiovascular and cerebrovascular events was reviewed. He has been diagnosed with leaky valve, going into surgery to replaced heart valve and removed plaque in February 2023. 2. Obesity, unspecified. Currently patients BMI is 40.9. Obesity increases the risk of apnea, CPAP pressure requirements and overall health risks especially cardiovascular and diabetes. Thus patient is advised to lose weight. * Continue CPAP pressure at 7 cmH2O * Update supply prescription * Notify me if snoring with mask or feeling that the pressure is too much or too little * Attempt to lose weight * Call this office if any problems using CPAP * Return for follow up in 1 year, or sooner if concerns arise Counseling Topics: Spare mask, Weight loss health impact Visit Type: In Office Time Spent with Patient (minutes): 26 Provider Statement: I spent 100% of the Face to Face Visit with the patient with greater than 50% spent counseling the patient and coordination of care.
[2023-02-05 11:52] VITALS: BP 115/70
== END 2023-02-05 10:59 | disposition home or self-care (01) ==
LOC: SC 10:58
PROVIDERS: ATTEND Nurse Practitioner Family
DX: G47.33 Obstructive sleep apnea (adult) (pediatric) (principal); E66.01 Morbid (severe) obesity due to excess calories; Z68.41 Body mass index [BMI] 40.0-44.9, adult
CPT/HCPCS: 99212; 99213

== ENCOUNTER 2023-12-12 08:57 | Outpatient (CLI) | payer BC, OTHER ==
[2023-12-12 12:04] LABS: BASOPHILS % (AUTO) 0.3 %; EOSINOPHILS # (AUTO) 0.1 10^3/uL (0.0-0.7); EOSINOPHILS % (AUTO) 1.1 %; HCT - HEMATOCRIT 43.4 % (42.0-52.0); LYMPHOCYTES # (AUTO) 1.9 10^3/uL (1.5-3.5); LYMPHOCYTES % (AUTO) 27.9 %; MEAN CORPUSCULAR HEMOGLOBIN 32.9 pg (27.0-31.0); MEAN CORPUSCULAR HGB CONC 34.6 g/dL (32.0-36.0); MEAN CORPUSCULAR VOLUME 95.2 fL (80.0-94.0); MEAN PLATELET VOLUME 11.6 fL (7.4-11.4); MONOCYTES # (AUTO) 0.5 10^3/uL (0.0-1.0); MONOCYTES % (AUTO) 7.4 %; NEUTROPHILS # (AUTO) 4.2 10^3/uL (1.5-6.6); NEUTROPHILS % (AUTO) 63.1 %; PLT - PLATELET COUNT 113 10^3/uL (130-450); RED BLOOD COUNT 4.56 10^6/uL (4.70-6.10); RED CELL DISTRIBUTION WIDTH 14.1 % (12.0-15.0); WHITE BLOOD COUNT 6.7 x10^3/uL (4.8-10.8)
[2023-12-12 12:18] LABS: ALBUMIN/GLOBULIN RATIO 1.5 (1.0-2.2); ALKALINE PHOSPHATASE 79 IU/L (42-121); ALT ALANINE AMINOTRANSFERASE 32 IU/L (10-60); AST ASPARTATE AMINOTRANSFERASE 28 IU/L (10-42); BUN - BLOOD UREA NITROGEN 18 mg/dL (6-20); CALCIUM 9.4 mg/dL (8.5-10.3); CARBON DIOXIDE - CO2 28 mmol/L (21-32); CHLORIDE 107 mmol/L (101-111); CHOL/HDL RATIO 2.6 (<5.0); CHOLESTEROL 93 mg/dL; CREATININE 0.8 mg/dL (0.6-1.3); GFR - MDRD 98 (>89); GLUCOSE 110 mg/dL (74-104); HDL CHOLESTEROL 36 mg/dL; LDL CHOLESTEROL,CALCULATED 45 mg/dL; LDL/HDL RATIO 1.3 (<3.6); POTASSIUM 4.2 mmol/L (3.5-4.5); SODIUM 139 mmol/L (135-145); TOTAL PROTEIN 6.6 g/dL (6.4-8.9); TRIGLYCERIDES 62 mg/dL (48-352); URIC ACID 5.6 mg/dL (4.4-7.6); VLDL CHOLESTEROL 12 mg/dL
[2023-12-12 12:34] LABS: ESTIMATED AVERAGE GLUCOSE 97 mg/dL (70-100)
== END 2023-12-12 08:58 | disposition home or self-care (01) ==
LOC: LAB.N 08:57
PROVIDERS: ATTEND Nurse Practitioner Family
DX: M10.9 Gout, unspecified (principal); E66.9 Obesity, unspecified; Z79.899 Other long term (current) drug therapy
CPT/HCPCS: 36415; 80053; 80061; 83036; 83721; 84443; 84550; 85025

== ENCOUNTER 2024-01-29 09:18 | Outpatient (CLI) | payer BC, OTHER ==
[2024-01-29 12:01] LABS: BASOPHILS % (AUTO) 0.2 %; EOSINOPHILS # (AUTO) 0.1 10^3/uL (0.0-0.7); EOSINOPHILS % (AUTO) 2.3 %; HCT - HEMATOCRIT 43.7 % (42.0-52.0); HGB - HEMOGLOBIN 15.2 g/dL (14.0-18.0); LYMPHOCYTES # (AUTO) 1.7 10^3/uL (1.5-3.5); LYMPHOCYTES % (AUTO) 27.6 %; MEAN CORPUSCULAR HEMOGLOBIN 32.5 pg (27.0-31.0); MEAN CORPUSCULAR HGB CONC 34.8 g/dL (32.0-36.0); MEAN CORPUSCULAR VOLUME 93.6 fL (80.0-94.0); MEAN PLATELET VOLUME 11.3 fL (7.4-11.4); MONOCYTES # (AUTO) 0.4 10^3/uL (0.0-1.0); NEUTROPHILS % (AUTO) 63.6 %; PLT - PLATELET COUNT 112 10^3/uL (130-450); RED BLOOD COUNT 4.67 10^6/uL (4.70-6.10); RED CELL DISTRIBUTION WIDTH 13.2 % (12.0-15.0); WHITE BLOOD COUNT 6.2 x10^3/uL (4.8-10.8)
[2024-01-29 12:17] LABS: ALBUMIN/GLOBULIN RATIO 1.5 (1.0-2.2); CALCIUM 9.4 mg/dL (8.5-10.3); CREATININE 0.8 mg/dL (0.6-1.3); POTASSIUM 3.9 mmol/L (3.5-4.5); TOTAL PROTEIN 6.6 g/dL (6.4-8.9)
== END 2024-01-29 09:19 | disposition home or self-care (01) ==
LOC: LAB.N 09:18
PROVIDERS: ATTEND Internal Medicine Hematology & Oncology
DX: C82.23 Follicular lymphoma grade III, unspecified, intra-abdominal lymph nodes (principal)
CPT/HCPCS: 36415; 80053; 83615; 85025

== ENCOUNTER 2024-02-18 09:42 | Outpatient (CLI) | payer BC, OTHER ==
--- NOTE | 2024-02-18 10:14 | Sleep Patient Instructions ---
Sleep Center Visit Summary - Patient Visit Information Reason for Visit: Annual follow-up - Patient Instructions Additional Instructions: You will continue with CPAP therapy with pressure changed to 8 cmH2O. Please let us know if the pressure change is uncomfortable and we can make further adjustments of the pressure. A supply prescription will be updated with your DME supplier. We encourage you to continue to try to lose weight. Please follow up with the sleep care office in 1 year. - Clinic Information Contact: [facility] [address] [place] [id number] [email or web address] T: [phone]
--- NOTE | 2024-02-18 10:19 | SLEEP CARE CONSULTATION ---
Information from patient questionnaire entered by Lois Wagner. I have reviewed and concur with the information entered by Lois Wagner. This document represents the service I personally performed and the decisions made by me, Eleni Stoddard ARNP. History of Present Illness Service Date and Time: 02/18/2024 0942 Previous diagnosis: Moderate, Obstructive Sleep Apnea-Hypopnea Syndrome AHI: 18.2 (in 2015) Reason for follow up: annual (LAST SEEN 02/2023) Equipment type: CPAP (DREAM STATION 2) Equipment obtained from: Other ([facility]; getting supplies) Mask style: Full face Backup mask available: Yes Last cushion change: 1-2 weeks Prior sleep studies: Yes Year and Where: 2015 - [facility] HPI additional information: SHEILA HOWARD was diagnosed to have moderate, AHI 18.2, obstructive sleep apnea-hypopnea syndrome and returned today for CPAP therapy annual follow-up. Sleep Study - Results Prior sleep studies: Yes Year and Where: 2015 - [facility] Compliance Data - Data Reviewed with Patient Average duration of nightly device use: 5 HRS 47 MINS 28 SECS Compliance rate %: 87.4 (02/17/23-02/16/24; 333/365 days used) Current pressure setting (cmH2O): 7 Average residual AHI: 6.5 Central apnea: 0.1 Obstructive apnea: 1.8 Hypopnea: 4.6 Average large leak: 1 min 17 secs Subjective Missed days of use due to: reports: travel Patient concerns: denies: aerophagia, mask discomfort, air blowing in eyes, mask leak noise, condensation in mask/hose, nasal congestion, dry mouth, nose, throat, epistaxis Observed to snore while using device: No Current pressure setting perceived as: comfortable On therapy, patient: reports: sleeping better, awakening more refreshed, being more awake and alert during the day, more rested overall. denies: drowsiness while driving Initial [place] Sleepiness Scale score: 13 (in 2015) Current [place] Sleepiness Scale score: 6 (02/18/24) Allergies and Home Medications Known drug allergies: No Drug allergies reviewed: Yes Home medication list reviewed: Yes (as updated in EMR) Allergy and home medication list: Allergies No Known Drug Allergies Allergy (Verified 02/18/24 09:44) Review of Systems Review of systems same as previous: No (HEART SURGERY 02/2023) Physical Exam Vital signs obtained and entered by: LOIS Corley MA Blood Pressure: 118/76 (LEFT ARM) Cuff size: long Heart Rate: 59 O2 Saturation: 91 Height: 5 ft 10 in Weight: 282 lb 9.6 oz Body Mass Index: 40.5 BMI Classification: Morbidly Obese Impression and Plan 1. Obstructive Sleep Apnea-Hypopnea Syndrome, moderate, with good treatment compliance and fair apnea control with elevated residual AHI. On CPAP therapy, the patient has better sleep quality and is more rested overall. He has significant improvement of his sleep apnea and is satisfied with current CPAP therapy. His pressure is slightly ineffective with a residual AHI of 6.5. The patients pressure will be changed to autoCPAP 8 cmH20 for elevation of residual AHI. Patient advised to contact me if pressure change is uncomfortable so that it can be adjusted. Goals for apnea control discussed. Patient's apnea severity and rationale for treatment to reduce apnea, improve sleep quality and reduce cardiovascular and cerebrovascular events was reviewed. I also reviewed the benefit of consistent device use of CPAP for cardiac disease (valves). 2. Obesity, unspecified. Currently patients BMI is 40.5. Obesity increases the risk of apnea, CPAP pressure requirements and overall health risks especially cardiovascular and diabetes. Thus patient is advised to lose weight. * Change auto CPAP pressure to 8 cmH2O * Update supply prescription * Notify me if snoring with mask or feeling that the pressure is too much or too little * Attempt to lose weight * Call this office if any problems using CPAP * Return for follow up in 12 months, or sooner if concerns arise Adjust device pressure to (cmH2O): 8 Counseling Topics: Spare mask, Weight loss health impact Prescriptions: Device supplies Follow up with Sleep Care in: 1 year Visit Type: In Office Time Spent with Patient (minutes): 20 Provider Statement: I spent 100% of the Face to Face Visit with the patient with greater than 50% spent counseling the patient and coordination of care.
[2024-02-18 10:25] VITALS: BP 118/76; O2SAT 91
== END 2024-02-18 09:43 | disposition home or self-care (01) ==
LOC: SC 09:42
PROVIDERS: ATTEND Nurse Practitioner Family
DX: G47.33 Obstructive sleep apnea (adult) (pediatric) (principal); E66.01 Morbid (severe) obesity due to excess calories; Z68.41 Body mass index [BMI] 40.0-44.9, adult
CPT/HCPCS: 99212; 99213

== ENCOUNTER 2024-03-03 09:30 | Outpatient (CLI) | payer BC, OTHER ==
--- NOTE | 2024-03-03 11:02 | XRAY Report ---
PROCEDURE: Shoulder 2+V RT INDICATIONS: RIGHT SHOULDER PAIN TECHNIQUE: 3 views of the right shoulder were acquired. COMPARISON: None. FINDINGS: Bones: No fractures or dislocations. No suspicious bony lesions. Visualized ribs appear intact. There is moderate to severe AC joint degenerative change present. No significant glenohumeral joint d egenerative change. Soft tissues: No suspicious soft tissue calcifications. The visualized lungs are within normal limi ts. IMPRESSION: 1. No acute bony abnormality. 2. Moderate to severe AC joint degenerative change. Reviewed by: Oz Mcclendon MD on 03/03/2024 11:00 AM PDT Approved by: Oz Mcclendon MD on 03/03/2024 11:00 AM PDT Station ID: [id number]
--- NOTE | 2024-03-03 11:06 | XRAY Report ---
PROCEDURE: Shoulder 2+V LT INDICATIONS: LEFT SHOULDER PAIN TECHNIQUE: 3 views of the left shoulder were acquired. COMPARISON: None. FINDINGS: Bones: No fractures or dislocations. No suspicious bony lesions. Visualized ribs appear intact. There is a moderate to severe AC joint degenerative change present. No significant glenohumeral joint degenerative change. Soft tissues: No suspicious soft tissue calcifications. The visualized lungs are within normal limi ts. IMPRESSION: 1. No acute bony abnormality. 2. Moderate to severe AC joint degenerative change. Reviewed by: Oz Mcclendon MD on 03/03/2024 11:05 AM PDT Approved by: Oz Mcclendon MD on 03/03/2024 11:05 AM PDT Station ID: [id number]
== END 2024-03-03 09:45 | disposition home or self-care (01) ==
LOC: DI.N 09:30
PROVIDERS: ATTEND Family Medicine
DX: M19.012 Primary osteoarthritis, left shoulder (principal); M19.011 Primary osteoarthritis, right shoulder